=== PATIENT | female | born 1970 ===

== ENCOUNTER 2017-10-04 07:34 | Outpatient (CLI) | payer OTHER ==
[~2017-10-04] VITALS: Ht 152.4 cm; Wt 74.4 kg
== END 2017-10-04 07:50 | disposition home or self-care (01) ==
LOC: OFIC 805 07:34
DX: J31.0 Chronic rhinitis (principal); H61.23 Impacted cerumen, bilateral; J34.2 Deviated nasal septum; H69.83 Other specified disorders of Eustachian tube, bilateral; J32.8 Other chronic sinusitis